=== PATIENT | male | born 1990 | race Caucasian/White ===

== ENCOUNTER 2018-07-24 19:23 | Inpatient (IN) | END 2018-07-31 17:30 | disposition home health service (06) | DRG 917 ==

== ENCOUNTER 2019-02-19 22:24 | Emergency (ER) | payer SELFPAY ==
[~2019-02-19 22:24] MED LIST: AMOX1TAB9 PO; BUSP10TA2 PO; CARAS PO; ESCI10TA48 PO; PANT40TA4 PO
== END 2019-02-19 22:27 | disposition left against medical advice (07) ==
LOC: E/R 22:24
DX: Z53.21 Procedure and treatment not carried out due to patient leaving prior to being seen by health care provider (principal)